=== PATIENT | male | born 1965 | race Caucasian/White ===

== ENCOUNTER 2016-04-28 05:45 | Inpatient (IN) | payer OTHER ==
[2016-04-25 11:50] VITALS: BMI 29.2
[2016-04-28] MEDS ORDERED: TRANEXAMIC ACID 1000 MG/10 ML VIAL IVPUSH ONE (05:50)
[2016-04-28] MEDS ORDERED: CEFAZOLIN 2 GM/D5W 50 ML IVPB ONE (05:50)
[2016-04-28] MEDS ORDERED: GABAPENTIN 300 MG CAPSULE (FP) PO ONE (05:50)
[2016-04-28] MEDS ORDERED: ROPIVICAINE 0.2%/MORPH PF/KETOROLAC - 51ML DISP.SYRINGE IA ONE ×2 (05:50→09:18)
[2016-04-28] MEDS ORDERED: oxyCODONE HCL 10 MG SUSTAINED ACTING TABLET PO ONE (05:50)
[2016-04-28] MEDS ORDERED: CELECOXIB 200 MG CAPSULE PO ONE (05:50)
[2016-04-28] MEDS ORDERED: ROPIVACAINE HCL 0.5% 30ML VIAL ONE (06:47)
[2016-04-28] MEDS ORDERED: SODIUM CHLORIDE 0.9% P/F 10 ML VIAL IJ ONE (06:47)
[2016-04-28] MEDS ORDERED: MIDAZOLAM HCL 2 MG/2 ML SINGLE DOSE VIAL ONE (06:47)
[2016-04-28] MEDS ORDERED: DEXAMETHASONE SOD PHOSPHATE/PF 10 MG/ML SDV ONE (06:47)
[2016-04-28] MEDS ORDERED: ceFAZolin SODIUM 1 GM VIAL ONE ×3 (07:13→08:24)
[2016-04-28] MEDS ORDERED: VANCOMYCIN 1,000 MG VIAL (RESTRICTED TO ID ONLY) ONE ×2 (07:13→08:11)
--- NOTE | 2016-04-28 07:34 | HP ---
Admitting History and Physical - Admission Chief Complaint: left knee osteoarthritis x years History of Present Illness: 50 year old male presents today in regard to his left knee. Longstanding history of left knee osteoarthritis. Patient has failed conservative treatment including PO medication, injections and activity modification. At this point patient would like to proceed with a left total knee arthroplasty. History Source: Patient - Past Medical History Cardiovascular: Yes: HTN, Hyperlipdemia Musculoskeletal: Yes: Osteoarthritis - Past Surgical History Additional Past Surgical History: See written H&P - Smoking History Smoking history: Never smoked Have you smoked in the past 12 months: No - Alcohol/Substance Use Hx Alcohol Use: No Home Medications - Allergies Allergies/Adverse Reactions: Allergies Allergy/AdvReac Type Severity Reaction Status Date / Time No Known Drug Allergies Allergy Verified 04/25/16 11:37 - Home Medications Home Medications: Ambulatory Orders Gabapentin 400 mg PO HS 04/25/16 Ibuprofen 600 mg PO DAILY 04/25/16 Lisinopril/Hydrochlorothiazide [Lisinopril-Hctz 20-12.5 mg Tab] 1 each PO DAILY 04/25/16 Simvastatin 10 mg PO HS 04/25/16 Physical Examination Vital Signs: Vital Signs Temperature 98.6 F 04/28/16 06:27 Pulse Rate 58 L 04/28/16 06:27 Respiratory Rate 18 04/28/16 06:27 Blood Pressure 124/78 04/28/16 06:27 O2 Sat by Pulse Oximetry (%) Constitutional: Yes: Well Nourished, No Distress Eyes: Yes: Conjunctiva Clear HENT: Yes: Atraumatic, Normocephalic Neck: Yes: Supple Cardiovascular: Yes: Regular Rate and Rhythm Respiratory: Yes: Regular Gastrointestinal: Yes: Soft ...Rectal Exam: Yes: Deferred Musculoskeletal: Yes: Other (LROM left knee) Assessment/Plan 50 year old male with longstanding left knee osteoarthritis. Patient has failed conservative treatment, proceed with a left total knee arthroplasty.
[2016-04-28] MEDS ORDERED: LACTATED RINGERS SOLUTION 1,000 ML IV SCH (08:00)
[2016-04-28] MEDS ORDERED: KETOROLAC TROMETHAMINE 30 MG/1 ML VIAL IVPUSH SCH (08:00)
[2016-04-28] MEDS ORDERED: TRANEXAMIC ACID 1000 MG/10 ML VIAL ONE ×3 (08:24→09:41)
[2016-04-28] MEDS ORDERED: PROPOFOL 20 ML ONE ×2 (08:32)
[2016-04-28] MEDS ORDERED: GUM MASTIC/STORAX/MSAL/ALCOHOL 1 DRP DROPSBTL MC ONE (09:51)
[2016-04-28] MEDS ORDERED: PATIENT'S OWN MEDICATION (NON-FORMULARY) (Lisinopril/Hydrochlorothiazide [Lisinopril-Hctz PO SCH (10:00)
--- NOTE | 2016-04-28 10:34 | OP ---
Operative Note - Note: Operative Date: 04/28/16 Pre-Operative Diagnosis: left knee OA Operation: left TKA Post-Operative Diagnosis: Same as Pre-op Surgeon: Ganga Matthews Chef Manager: Ly Rios Anesthesia: Spinal Estimated Blood Loss (mls): 50
[2016-04-28] MEDS ORDERED: MAG HYDROX/AL HYDROX/SIMETH 30 ML UNIT-DOSE CUP PO PRN (11:03)
[2016-04-28] MEDS ORDERED: ROPIVACAINE 0.2% 400ML 400 ML ML NR ONE (11:08)
[2016-04-28] MEDS ORDERED: ACETAMINOPHEN 1000 MG/100 ML VIAL (NON FORMULARY) IVPB ONE (11:08)
[2016-04-28] MEDS ORDERED: MAGNESIUM HYDROX 2400MG/30ML ORAL SUSPENSION 30 ML CUP PO PRN (11:19)
[2016-04-28] MEDS ORDERED: ONDANSETRON 4 MG/2 ML VIAL IVPB PRN (11:19)
[2016-04-28 11:34] LABS: HIV 1 & 2 AB NEGATIVE; HIV 1 AGp24 NEGATIVE
[2016-04-28] MEDS ORDERED: traMADol HCL 50 MG TABLET PO ONE (11:55)
[2016-04-28] MEDS: oxyCODONE HCL 5 MG TABLET PO PRN ×2 (15:08→21:45)
[2016-04-28] MEDS: CEFAZOLIN 2 GM/D5W 50 ML IVPB SCH (15:09)
[2016-04-28] MEDS: traMADol HCL 50 MG TABLET PO SCH ×2 (17:45→23:46)
[2016-04-28] MEDS: ACETAMINOPHEN 325 MG TABLET (FP) PO SCH ×2 (17:45→23:47)
[2016-04-28] MEDS: KETOROLAC TROMETHAMINE 30 MG/1 ML VIAL IVPUSH SCH ×2 (17:46→23:46)
[2016-04-28] MEDS: oxyCODONE HCL 10 MG SUSTAINED ACTING TABLET PO SCH (18:34)
[2016-04-28] MEDS: ATORVASTATIN CA 10 MG TABLET (FP) PO SCH (21:45)
[2016-04-28] MEDS: GABAPENTIN 300 MG CAPSULE (FP) PO SCH (21:45)
[2016-04-28] MEDS: CELECOXIB 200 MG CAPSULE PO SCH (21:45)
[2016-04-28] MEDS: SENNOSIDES/DOCUSATE COMBO (SENNA PLUS) TABLET (UD) PO SCH (21:46)
[2016-04-28] MEDS ORDERED: PATIENT'S OWN MEDICATION (NON-FORMULARY) (Simvastatin [Simvastatin] 10 MG) PO SCH (22:00)
[2016-04-29] MEDS: CEFAZOLIN 2 GM/D5W 50 ML IVPB SCH
[2016-04-29] MEDS: traMADol HCL 50 MG TABLET PO SCH ×4 (06:05→17:16)
[2016-04-29] MEDS: oxyCODONE HCL 10 MG SUSTAINED ACTING TABLET PO SCH ×2 (06:05→18:58)
[2016-04-29] MEDS: ACETAMINOPHEN 325 MG TABLET (FP) PO SCH ×3 (06:05→17:15)
[2016-04-29] MEDS: KETOROLAC TROMETHAMINE 30 MG/1 ML VIAL IVPUSH SCH (06:06)
[2016-04-29 08:24] LABS: MCH 27.8 pg (25.7-33.7); MCHC 32.8 g/dl (32.0-35.9); MEAN CELL VOLUME 84.9 fl (80-96); MEAN PLT VOLUME 7.4 fl (7.5-11.1); PLATELET COUNT 227 K/MM3 (134-434); RDW 11.9 % (11.9-15.9); WHITE BLOOD COUNT 10.5 K/mm3 (4.0-10.0)
[2016-04-29] MEDS: oxyCODONE HCL 5 MG TABLET PO PRN ×3 (08:50→21:32)
[2016-04-29 09:31] LABS: CALCIUM 8.9 mg/dl (8.4-10.2)
[2016-04-29] MEDS: HYDROCHLOROTHIAZIDE 12.5 MG CAPSULE (FP) PO SCH (09:33)
[2016-04-29] MEDS: ASPIRIN 325 MG TABLET PO SCH (09:33)
[2016-04-29] MEDS: SENNOSIDES/DOCUSATE COMBO (SENNA PLUS) TABLET (UD) PO SCH ×2 (09:33→21:24)
[2016-04-29] MEDS: CELECOXIB 200 MG CAPSULE PO SCH ×2 (09:33→21:23)
[2016-04-29] MEDS: GABAPENTIN 300 MG CAPSULE (FP) PO SCH ×2 (09:34→21:22)
[2016-04-29] MEDS: MULTIVITAMINS (DAILY MVI) TABLET (FP) PO SCH (09:35)
[2016-04-29] MEDS: PANTOPRAZOLE 40 MG TABLET (FP) PO SCH (09:35)
[2016-04-29] MEDS: LISINOPRIL 20 MG TABLET (FP) PO SCH (09:35)
--- NOTE | 2016-04-29 11:06 | PN ---
Progress Note (short form) - Note Progress Note: Pt seen and examined. Comfortable. No complaints. AVSS Selected Entries 04/29/16 05:00 Temperature 97.6 F Pulse Rate 62 Respiratory 18 Rate Blood Pressure 98/52 O2 Sat by Pulse 100 Oximetry (%) Oxygen Delivery Room Air Method Laboratory Tests 04/29/16 04/29/16 07:00 07:00 WBC 10.5 H Hgb 13.3 Hct 40.6 Plt Count 227 Sodium 135 L Potassium 4.1 Chloride 104 Carbon Dioxide 25 Anion Gap 6 L BUN 19 H Creatinine 1.0 Random Glucose 118 H Gen: NAD LLE: c/d/i, NVID, 08/08 GS/TA/EHL/FHL Sens intact to LT, foot warm A/P 50yo male POD#1 s/p L TKA 1. PT/OOB 2. Plan for d/c home Thursday
--- NOTE | 2016-04-29 15:02 | SPEC ---
DATE OF OPERATION: 04/28/2016 PREOPERATIVE DIAGNOSIS: Left knee osteoarthritis. POSTOPERATIVE DIAGNOSIS: Left knee osteoarthritis. PROCEDURE PERFORMED: Left total knee replacement. SURGEON: Hiren Ashley MD WATER CARTER: TELLY Cordova ANESTHESIA: Spinal plus sedation. ESTIMATED BLOOD LOSS: 50 mL. COMPLICATIONS: None. SPECIMENS: Resected bone was sent for Pathology analysis. DISPOSITION: The patient was transferred to the PACU in stable condition. IMPLANTS USED: [place] Triathlon size 5 femoral and tibial components, 32-mm patellar components, 11-mm posterior-stabilized polyethylene component. INDICATIONS: This is a 50-year-old male who presented to the office complaining of left knee pain. He was seen and examined by Dr. Ashley and diagnosed with left knee osteoarthritis. He had failed a long trial of nonoperative management, with injection of medications and physical therapy, and was indicated for left total knee replacement. The risks, benefits and alternatives of the procedure were explained to the patient in great detail and he elected to proceed with the surgery. DESCRIPTION OF PROCEDURE: On the day of surgery, the patient was taken to the operating room and placed on the OR table. Spinal anesthesia was administered by the anesthesiologist. The patient was then positioned supine on the table and all bony prominences were padded. A nonsterile tourniquet was placed on the proximal thigh. The knee was then prepped and draped in the usual sterile fashion, and intravenous antibiotics were given for infection prophylaxis. A surgical time-out was then performed with the team, and the patients identity, procedure, side, availability of implants and the administration of antibiotics was confirmed. The leg was then elevated and exsanguinated, and the tourniquet was inflated. With the knee flexed, a midline incision was made and carried down through the subcutaneous fat to the underlying retinaculum. A medial parapatellar arthrotomy was performed. This was followed by a subperiosteal dissection of the tissue off the proximal medial tibia. A portion of fat pad was removed from under the patellar tendon, and a small portion of fat was excised off the distal supracondylar femur. The knee was then flexed further and the anterior horn of the lateral meniscus was released from the midline. Next, the anterior and posterior cruciate ligaments were transected. Osteophytes were removed from both the femur and tibia. Grade 4 changes were noted diffusely throughout the knee. Hohmann retractors were then placed around the distal femur. The starting drill was used to enter the intramedullary canal. The starting point had been chosen by checking the radiographs and anatomy. Proper alignment and intramedullary placement were then confirmed by placing the long narrow emily into the femur. Next, the distal femoral cutting guide was adjusted to 6 degrees of valgus and pinned to the femur. The bone resection was assessed using an ashvin wing. An approximately 10 mm distal cut was made and the cut pieces measured. Once this was complete, the sizing guide was used to determine which size femoral component should be used. Next, the appropriately sized 4-in-1 cutting block was then placed at the correct amount of external rotation and the ashvin wing was used to assure that there would be no notching of the anterior cortex of the femur. Once this was done, Hohmann retractors were used to protect the medial and lateral collateral ligaments, and all appropriate bone cuts were made. Attention was then turned to the tibia. Hohmann retractors were used to translate the tibia anteriorly and protect the collateral ligaments. The medial and lateral menisci were removed. The extramedullary tibial alignment guide was then placed and adjusted for rotation, varus, valgus and slope. The height of the cutting block was adjusted to the level of the desired bone resection and then pinned in place. The proximal tibia was then cut with a saw and the bone was removed and measured. Once this was completed, trial components were placed and the knee was taken through a full range of motion. Soft tissue balance was assessed in both flexion and extension and found to be appropriate. The knee was stable throughout the full range of motion. The knee was then put into extension and the patella everted. The synovium around the patella was circumscribed with electrocautery. A caliper was used to measure the patellar thickness, and a saw was then used to resect the patella at the chondro-osseous junction. The cut surface was then sized and drilled for the appropriate patellar button, with care taken to medialize it. A trial patella was then placed and the knee was again taken through a full range of motion. The knee was found to have both good balance and good patellar tracking. All of the components were removed except the tibial base plate. The appropriate instrumentation was used to drill and punch the proximal tibia for the keel of the final component. All bony surfaces were then cleaned with pulsatile lavage and dried. Bone cement was then prepared on the back table, and final components were cemented in place in the usual fashion. Extruded cement was removed. The polyethylene trial was placed. The knee was put into extension, and axial pressure was applied for compression while the cement hardened. The patellar button was similarly cemented into place. Once the cement had hardened, the knee was taken through a full range of motion to assess stability, balance, and patellar tracking. This was found to be optimal, and the trial polyethylene was exchanged for the appropriately sized real implant. The wound was then thoroughly irrigated with normal saline. No. 1 Polysorb and 0 V-Loc 180 barbed sutures were used to close the arthrotomy. No. 1 Polysorb and 2-0 Polysorb sutures were used in the subcutaneous tissues. The skin was closed using both 3-0 V-Loc 90 suture in a running subcuticular fashion and SwiftSet skin adhesive. Once this was completed, a sterile Aquacel dressing and compressive Arsh-wrap were applied. The tourniquet was then deflated and the patient was awakened and taken to the PACU in stable condition. ADDENDUM: After all implants were placed, a 3-minutes dilute Betadine lavage was performed according to the DUPUYER protocol for this. The wound was again irritated with pulse lavage and wound closure was begun. HIREN ASHLEY M.D. [id number]
--- NOTE | 2016-04-29 15:45 | PN ---
Progress Note (short form) - Note Progress Note: POD #1 s/p Left TKR, Doing well, comfortable VSS, moving etremities, Adductor Canal catheter dressing C/D/I Continue adductor canal catheter and adjunct meds
[2016-04-29] MEDS: ATORVASTATIN CA 10 MG TABLET (FP) PO SCH (21:23)
[2016-04-30] MEDS: ACETAMINOPHEN 325 MG TABLET (FP) PO SCH ×2 (00:05→06:08)
[2016-04-30] MEDS: traMADol HCL 50 MG TABLET PO SCH ×2 (00:06→06:09)
[2016-04-30 06:03] VITALS: BP 95/67; PULSE 78; TEMP 98.5
[2016-04-30] MEDS: oxyCODONE HCL 10 MG SUSTAINED ACTING TABLET PO SCH (06:09)
[2016-04-30 08:40] LABS: MCH 27.7 pg (25.7-33.7); MCHC 32.5 g/dl (32.0-35.9); MEAN PLT VOLUME 7.4 fl (7.5-11.1); PLATELET COUNT 211 K/MM3 (134-434); RDW 12.4 % (11.9-15.9); WHITE BLOOD COUNT 9.4 K/mm3 (4.0-10.0)
[2016-04-30 08:44] LABS: CALCIUM 8.9 mg/dl (8.4-10.2)
--- NOTE | 2016-04-30 09:27 | PN ---
Progress Note (short form) - Note Progress Note: 50M POD2 s/p L TKR under spinal anesthetic with cont. adductor canal catheter and tibial block for pain control. Pain is controlled, AVSS, pt reports no anesthetic complications. Catheter removed, tip intact, site clean. Sensory and motor function intact in both lower extremities.
[2016-04-30] MEDS: SENNOSIDES/DOCUSATE COMBO (SENNA PLUS) TABLET (UD) PO SCH ×2 (09:34→09:37)
[2016-04-30] MEDS: ASPIRIN 325 MG TABLET PO SCH (09:34)
[2016-04-30] MEDS: oxyCODONE HCL 5 MG TABLET PO PRN (09:35)
[2016-04-30] MEDS: CELECOXIB 200 MG CAPSULE PO SCH (09:36)
[2016-04-30] MEDS: HYDROCHLOROTHIAZIDE 12.5 MG CAPSULE (FP) PO SCH ×2 (09:36→09:37)
[2016-04-30] MEDS: MULTIVITAMINS (DAILY MVI) TABLET (FP) PO SCH (10:48)
[2016-04-30] MEDS: PANTOPRAZOLE 40 MG TABLET (FP) PO SCH (10:48)
[2016-04-30] MEDS: LISINOPRIL 20 MG TABLET (FP) PO SCH (10:48)
[2016-04-30] MEDS: GABAPENTIN 300 MG CAPSULE (FP) PO SCH (10:48)
--- NOTE | 2016-04-30 10:48 | PN ---
Progress Note (short form) - Note Progress Note: Pt seen and examined. Comfortable. No complaints. AVSS Selected Entries 04/30/16 06:02 Temperature 98.5 F Pulse Rate 78 Respiratory 19 Rate Blood Pressure 95/67 O2 Sat by Pulse 95 Oximetry (%) Laboratory Tests 04/30/16 04/30/16 07:00 07:00 WBC 9.4 Hgb 13.5 Hct 41.4 Plt Count 211 Sodium 136 Potassium 4.8 Chloride 99 Carbon Dioxide 31 H D Anion Gap 6 L BUN 12 D Creatinine 1.0 Random Glucose 94 D Gen: NAD LLE: c/d/i, NVID, 08/08 GS/TA/EHL/FHL Sens intact to LT, foot warm A/P 50yo male POD#2 s/p L TKA 1. PT/OOB 2. d/c home today
--- NOTE | 2016-04-30 13:19 | PATH ---
Surgical Pathology Report Patient Name: MINNIE GORE Med. Rec. #: [id number] /Age/Gender: 1965 (Age: 50) / M Account: [id number] Location: [facility] MED-SURG Taken: 04/28/2016 Received: 04/28/2016 Reported: 04/30/2016 Physicians: Ganga Matthews M.D. Specimen(s) Received BONE LEFT KNEE Clinical History Osteoarthritis of left knee Final Diagnosis BONE, LEFT KNEE, TOTAL KNEE REPLACEMENT: CONSISTENT WITH DEGENERATIVE JOINT DISEASE. Electronically Signed Jm See M.D. Gross Description Received in formalin, labeled "bone left knee" is a 13.0 x 9.5 x 2.0 cm aggregate of multiple brock, irregular portions of bone and soft tissue. The tibial plateau measures 8.5 x 6.0 x 1.8 cm. There is a 2 cm in greatest dimension area of eburnation present. The remaining articular surfaces are brock-yellow and focally granular. The underlying trabecular bone is yellow and heterogebeous. Assembler Insulator sections are submitted in one cassette following decalcification. 04/29/201604/29/2016
== END 2016-04-30 12:01 | disposition home health service (06) | DRG 302 ==
LOC: FM/S 05:45
PROVIDERS: ADMIT Student in an Organized Health Care Education/Training Program; ATTEND Student in an Organized Health Care Education/Training Program
PROC: 0SRD0J9 Replacement of Left Knee Joint with Synthetic Substitute, Cemented, Open Approach (ICD-10-PCS; principal; 2016-04-28 08:42)
DX: M17.12 Unilateral primary osteoarthritis, left knee (principal); I10 Essential (primary) hypertension; E78.5 Hyperlipidemia, unspecified
CPT/HCPCS: 36415; 73560-TC-LT; 80048; 85027; 86803; 87389; 88304-TC; 88311-TC; 94010; 94760; 97116-GP; 97162-PG

== ENCOUNTER 2017-10-19 12:00 | Inpatient (IN) | payer OTHER ==
[2017-10-12 14:56] VITALS: BMI 31.3
[2017-10-26] MEDS ORDERED: oxyCODONE HCL 10 MG SUSTAINED ACTING TABLET PO ONE (06:27)
--- NOTE | 2017-10-26 07:17 | HP ---
Admitting History and Physical - Admission Chief Complaint: Right knee osteoarthritis x years History of Present Illness: 52 year old male presents regarding his right knee. Longstanding history of right knee osteoarthritis. Patient complains of pain, limited ROM, difficulty ambulating and difficulty with ADLs. Patient has failed conservative treatment measures including PO medication, activity modification, injections and exercise program. At this point, patient wishes to proceed with surgical intervention - right total knee arthroplasty (MAKOplasty). History Source: Patient - Past Medical History Cardiovascular: Yes: HTN, Hyperlipdemia Musculoskeletal: Yes: Osteoarthritis - Past Surgical History Additional Past Surgical History: See written history & physical. - Smoking History Smoking history: Never smoked Have you smoked in the past 12 months: No - Alcohol/Substance Use Hx Alcohol Use: No Home Medications - Allergies Allergies/Adverse Reactions: Allergies Allergy/AdvReac Type Severity Reaction Status Date / Time No Known Drug Allergies Allergy Verified 10/12/17 14:36 - Home Medications Home Medications: Ambulatory Orders Lisinopril/Hydrochlorothiazide [Lisinopril-Hctz 20-12.5 mg Tab] 1 each PO DAILY 04/25/16 Simvastatin 10 mg PO HS 04/25/16 Sennosides/Docusate Sodium [Pericolace -] 2 tablet PO BID tablet 04/30/16 Review of Systems - Review of Systems Musculoskeletal: reports: Crepitus (right knee), Decreased ROM (right knee), Joint Pain (right knee), Joint Swelling (right knee) Physical Examination Vital Signs: Vital Signs Temperature 98.1 F 10/26/17 06:44 Pulse Rate 61 10/26/17 06:44 Respiratory Rate 16 10/26/17 06:44 Blood Pressure 113/74 10/26/17 06:44 O2 Sat by Pulse Oximetry (%) Constitutional: Yes: Well Nourished, No Distress Eyes: Yes: Conjunctiva Clear HENT: Yes: Atraumatic, Normocephalic Neck: Yes: Supple Cardiovascular: Yes: Regular Rate and Rhythm Respiratory: Yes: Regular Gastrointestinal: Yes: Soft ...Rectal Exam: Yes: Deferred Musculoskeletal: Yes: Joint Swelling (right knee) Assessment/Plan 52 year old male presents regarding his right knee. Longstanding history of right knee osteoarthritis. Patient complains of pain, limited ROM, difficulty ambulating and difficulty with ADLs. Patient has failed conservative treatment measures including PO medication, activity modification, injections and exercise program. At this point, patient wishes to proceed with surgical intervention - right total knee arthroplasty (MAKOplasty). Pros, cons, risks, benefits and alternatives of a right total knee arthroplasty - MAKOplasty was discussed with the patient at length. Patient confirms his understanding and consents to proceed with a right total knee arthroplasty, MAKOplasty.
[2017-10-26] MEDS ORDERED: MIDAZOLAM HCL 2 MG/2 ML SINGLE DOSE VIAL ONE ×2 (07:19→08:22)
[2017-10-26] MEDS ORDERED: SODIUM CHLORIDE 0.9% P/F 10 ML VIAL IJ ONE (07:20)
[2017-10-26] MEDS ORDERED: BUPIVACAINE LIPOSOME/PF (EXPAREL) 266 MG/20 ML VIAL ONE (07:20)
[2017-10-26] MEDS ORDERED: BUPIVACAINE HCL/PF (5 MG/ML) 30 ML VIAL IJ ONE (07:20)
[2017-10-26] MEDS ORDERED: ROPIVICAINE 0.2%/MORPH PF/KETOROLAC - 51ML DISP.SYRINGE IA ONE ×4 (07:42→10:40)
[2017-10-26] MEDS ORDERED: GABAPENTIN 300 MG CAPSULE (FP) PO ONE (08:00)
[2017-10-26] MEDS ORDERED: PANTOPRAZOLE 40 MG TABLET (FP) PO ONE (08:00)
[2017-10-26] MEDS ORDERED: TRANEXAMIC ACID 1000 MG/10 ML VIAL IVPUSH ONE (08:00)
[2017-10-26] MEDS ORDERED: CEFAZOLIN 2 GM in DEXTROSE 5%-WATER - 50 ML IVPB ONE (08:00)
[2017-10-26] MEDS ORDERED: CELECOXIB 200 MG CAPSULE PO ONE (08:00)
[2017-10-26] MEDS ORDERED: BUPIVACAINE 0.75% IN DEXTROSE/PF 2ML AMPULE NR ONE (08:02)
[2017-10-26] MEDS ORDERED: TRANEXAMIC ACID 1000 MG/10 ML VIAL ONE ×2 (08:23→10:23)
[2017-10-26] MEDS ORDERED: ceFAZolin SODIUM 1 GM VIAL ONE (08:23)
[2017-10-26] MEDS ORDERED: PROPOFOL 20 ML ONE ×3 (08:34→09:59)
[2017-10-26] MEDS ORDERED: ePHEDrine SULFATE 50 MG/1 ML AMPULE ONE (10:22)
[2017-10-26] MEDS ORDERED: KETOROLAC TROMETHAMINE 30 MG/1 ML VIAL ONE (10:23)
[2017-10-26] MEDS ORDERED: DEXAMETHASONE SOD PHOSPHATE 4 MG/1 ML VIAL ONE (10:23)
[2017-10-26] MEDS ORDERED: ONDANSETRON 4 MG/2 ML VIAL ONE (10:23)
[2017-10-26] MEDS ORDERED: VANCOMYCIN 1,000 MG VIAL (RESTRICTED TO ID ONLY) IVPB ONE ×2 (10:30→10:40)
[2017-10-26] MEDS ORDERED: TRANEXAMIC ACID 1000 MG/10 ML VIAL IVPB ONE ×2 (10:30→10:40)
[2017-10-26] MEDS ORDERED: ONDANSETRON 4 MG/2 ML VIAL IVPUSH PRN ×2 (11:35→11:51)
[2017-10-26] MEDS ORDERED: traMADol HCL 50 MG TABLET PO SCH (11:45)
[2017-10-26] MEDS ORDERED: LACTATED RINGERS SOLUTION 1,000 ML IV SCH ×2 (11:45→12:00)
[2017-10-26] MEDS ORDERED: MAG HYDROX/AL HYDROX/SIMETH 30 ML UNIT-DOSE CUP PO PRN (11:51)
[2017-10-26] MEDS ORDERED: MAGNESIUM HYDROX 2400MG/30ML ORAL SUSPENSION 30 ML CUP PO PRN (11:51)
[2017-10-26] MEDS: ACETAMINOPHEN 1000 MG/100 ML VIAL (NON FORMULARY) IVPB ONE ×2 (12:00→13:58)
--- NOTE | 2017-10-26 12:09 | OP ---
Operative Note - Note: Operative Date: 10/26/17 Pre-Operative Diagnosis: right knee OA Operation: right TKA ALPHONSO Post-Operative Diagnosis: Same as Pre-op Surgeon: Ganga Matthews Supervisor Pre Wave: Ly Rios Anesthesia: Spinal Estimated Blood Loss (mls): 100
[2017-10-26] MEDS ORDERED: KETOROLAC TROMETHAMINE 30 MG/1 ML VIAL IVPUSH SCH (15:00)
[2017-10-26] MEDS: KETOROLAC TROMETHAMINE 30 MG/1 ML VIAL IVPUSH SCH (17:30)
[2017-10-26] MEDS: ACETAMINOPHEN 325 MG TABLET (FP) PO SCH (17:31)
[2017-10-26] MEDS: traMADol HCL 50 MG TABLET PO SCH (17:31)
[2017-10-26] MEDS: CEFAZOLIN 2 GM/D5W 2 GM/50 ML ML IVPB SCH (17:48)
--- NOTE | 2017-10-26 19:28 | SPEC ---
DATE OF OPERATION: 10/26/2017 PREOPERATIVE DIAGNOSIS: Right knee osteoarthritis. POSTOPERATIVE DIAGNOSIS: Right knee osteoarthritis. PROCEDURE: Right total knee replacement with MAKOplasty robotic navigation. ATTENDING: Hiren Ashley MD CLOTH FINISHING RANGE OPERATOR CHIEF: TELLY Cordova ANESTHESIA: Spinal plus sedation. ESTIMATED BLOOD LOSS: 100 mL COMPLICATIONS: None. DISPOSITION: The patient was transferred to the PACU in stable condition. IMPLANTS USED: [place] Triathlon size 5 femoral component, size 6 tibial component, 29-mm patellar component, 11-mm posterior-stabilized polyethylene component. INDICATIONS: This is a 52-year-old male who presented to the office complaining of bilateral knee pain. He was seen and examined by Dr. Ashley and diagnosed with severe bilateral knee osteoarthritis. The patient underwent a left total knee replacement in April 2016, and did very well after the surgery. He continued to have severe right knee pain and ambulatory dysfunction and desired to have the same surgery performed on the right side. The risks, benefits, and alternatives for the procedure were explained to the patient in great detail, and he elected to proceed with the surgery. On the day of surgery, the patient was taken to the operating room and placed on the OR table. Spinal anesthesia was administered by the anesthesiologist. The patient was then positioned supine on the table and all bony prominences were padded. The knee was then prepped and draped in the usual sterile fashion and intravenous antibiotics were given for infection prophylaxis. A surgical time-out was then performed with the team, and the patients identity, procedure, side, availability of implants, and the administration of antibiotics was confirmed. With the knee flexed, a midline incision was made and carried down through the subcutaneous fat to the underlying retinaculum. A medial parapatellar arthrotomy was performed. This was followed by a subperiosteal dissection of the tissue off the proximal, medial tibia. A portion of fat pad was removed from under the patellar tendon, and a small portion of fat was excised off the distal supracondylar femur. Electrocautery and an Aquamantys bipolar sealing device were used to achieve hemostasis. The knee was then flexed further and the anterior horn of the lateral meniscus was released from the midline. Next, the anterior and posterior cruciate ligaments were transected. Grade 4 changes were noted diffusely throughout the knee. Femoral and tibial checkpoints were then placed in the appropriate location using a mallet. Two parallel bicortical self-drilling pins were placed in the tibial diaphysis after making stab incisions and bluntly dissecting down to bone. Two pins were then placed in the distal supracondylar femur. The Platogo navigation arrays were then attached to both the femoral and tibial pins and the lower extremity was then registered to the robotic navigation device using various joint movements, as well as inputting several dozen reference points. The knee was then taken through a full range of motion with a corrective force applied. Alignment in varus/valgus as well as flexion/extension and soft tissue balance was measured in various positions. The navigation device showed a numerical and graphic representation of the soft tissue balance. The components were repositioned virtually using the software until optimal soft tissue balance was achieved on screen. Once this was accomplished, the final plan was saved and sent to the robot. Self-retaining retractors were then placed at the joint line for exposure and protection of the collateral ligaments. The robot was brought into the sterile field and registered with the navigation device. The robotic arm with attached oscillating saw blade was then used to perform femoral and tibial bone cuts as per the saved software plan. The femoral box cut was made using the appropriately sized manual cutting guide. The knee was then irrigated. Trial components were placed and the knee was taken through a full range of motion to assess soft tissue balance and alignment. The range of motion was found to be excellent and the soft tissue balance was optimal and according to plan. The knee was then put into extension and the patella everted. The synovium around the patella was circumscribed with electrocautery. A caliper was used to measure the patellar thickness and a saw was then used to resect the patella at the chondro-osseous junction. The cut surface was then sized and drilled for the appropriate patellar button, with care taken to medialize it. A trial patella was then placed and the knee was again taken through a full range of motion. The knee was found to have both good balance and good patellar tracking. All of the components were removed except the tibial base plate. The appropriate instrumentation was used to drill and punch the proximal tibia for the keel of the final component. All bony surfaces were then cleaned with pulsatile lavage and dried. Bone cement was then prepared on the back table, and final components were cemented in place in the usual fashion. Extruded cement was removed. The polyethylene trial was placed, the knee was put into extension, and axial pressure was applied for compression while the cement hardened. The patellar button was similarly cemented into place. Once the cement had hardened, the knee was taken through a full range of motion to assess stability, balance, and patellar tracking. This was found to be optimal and the trial polyethylene was exchanged for the appropriately sized real implant. The wound was then thoroughly irrigated with normal saline. A 3-minute dilute Betadine lavage was performed. The knee was again irrigated using a pulsatile lavage device. A periarticular injection was used to locally infiltrate the capsular tissues surrounding the implant and prosthesis. Then No. 1 Polysorb and 0 VLoc 180 barbed sutures were used to close the arthrotomy. Then No. 1 Polysorb and 2-0 VLoc 90 sutures were used in the subcutaneous tissues. Then 4-0 undyed Vicryl and Dermabond skin adhesive was used to close the stab incisions made for the navigation pins. The skin was closed using both 3-0 VLoc 90 suture in a running subcuticular fashion and Dermabond skin adhesive. Once this was completed a sterile Aquacel dressing and compressive Arsh-wrap was applied. The patient was then awakened and taken to the PACU in stable condition. HIREN ASHLEY M.D. [id number]
[2017-10-26] MEDS ORDERED: DEXAMETHASONE SOD PHOSPHATE 10 MG/1 ML VIAL IVPB ONE (20:00)
[2017-10-26] MEDS: ATORVASTATIN CA 10 MG TABLET (FP) PO SCH (21:18)
[2017-10-26] MEDS: oxyCODONE HCL 5 MG TABLET PO PRN (21:18)
[2017-10-26] MEDS: CELECOXIB 200 MG CAPSULE PO SCH (21:18)
[2017-10-26] MEDS: SENNOSIDES/DOCUSATE COMBO (SENNA PLUS) TABLET (UD) PO SCH (21:18)
[2017-10-26] MEDS: oxyCODONE HCL 10 MG SUSTAINED ACTING TABLET PO SCH (21:18)
[2017-10-26] MEDS: GABAPENTIN 300 MG CAPSULE (FP) PO SCH (21:19)
[2017-10-26] MEDS: ASCORBIC ACID 500 MG TABLET (FP) PO SCH (21:19)
[2017-10-26] MEDS ORDERED: PATIENT'S OWN MEDICATION (NON-FORMULARY) (Simvastatin [Simvastatin] 10 MG) PO SCH (22:00)
[2017-10-26] MEDS ORDERED: SENNOSIDES/DOCUSATE COMBO (SENNA PLUS) TABLET (UD) PO SCH (22:00)
[2017-10-27] MEDS: ACETAMINOPHEN 325 MG TABLET (FP) PO SCH ×4 (00:31→17:49)
[2017-10-27] MEDS: traMADol HCL 50 MG TABLET PO SCH ×4 (00:31→17:50)
[2017-10-27] MEDS: KETOROLAC TROMETHAMINE 30 MG/1 ML VIAL IVPUSH SCH ×2 (00:32→06:09)
[2017-10-27] MEDS: CEFAZOLIN 2 GM/D5W 2 GM/50 ML ML IVPB SCH (02:13)
[2017-10-27 08:26] LABS: ANION GAP 4 (8-16); BLOOD UREA NITROGEN 16 mg/dl (7-18); CALCIUM 8.7 mg/dl (8.4-10.2); CHLORIDE 101 mmol/L (98-107); CO2 26 mmol/L (22-28); CREATININE 1.1 mg/dl (0.6-1.3); GLUCOSE,RANDOM 182 mg/dl (74-106); POTASSIUM 4.2 mmol/L (3.5-5.1); SODIUM 131 mmol/L (136-145)
[2017-10-27] MEDS: ASPIRIN 325 MG TABLET PO SCH (08:30)
[2017-10-27 08:31] LABS: HEMATOCRIT 41.5 % (35.4-49); HEMOGLOBIN 14.4 GM/dl (11.7-16.9); MCH 29.2 pg (25.7-33.7); MCHC 34.5 g/dl (32.0-35.9); MEAN CELL VOLUME 84.5 fl (80-96); MEAN PLT VOLUME 7.2 fl (7.5-11.1); PLATELET COUNT 267 K/MM3 (134-434); RBC 4.92 M/mm3 (4.00-5.60); RDW 12.1 % (11.9-15.9); WHITE BLOOD COUNT 14.8 K/mm3 (4.0-10.8)
[2017-10-27] MEDS: GABAPENTIN 300 MG CAPSULE (FP) PO SCH ×2 (09:32→21:18)
[2017-10-27] MEDS: HYDROCHLOROTHIAZIDE 12.5 MG CAPSULE (FP) PO SCH (09:32)
[2017-10-27] MEDS: PANTOPRAZOLE 40 MG TABLET (FP) PO SCH (09:32)
[2017-10-27] MEDS: MULTIVITAMINS (DAILY MVI) TABLET (FP) PO SCH (09:33)
[2017-10-27] MEDS: LISINOPRIL 20 MG TABLET (FP) PO SCH (09:33)
[2017-10-27] MEDS: CELECOXIB 200 MG CAPSULE PO SCH ×2 (09:33→21:17)
[2017-10-27] MEDS: ASCORBIC ACID 500 MG TABLET (FP) PO SCH ×2 (09:33→21:17)
[2017-10-27] MEDS: SENNOSIDES/DOCUSATE COMBO (SENNA PLUS) TABLET (UD) PO SCH ×2 (09:33→21:17)
[2017-10-27] MEDS: oxyCODONE HCL 10 MG SUSTAINED ACTING TABLET PO SCH ×2 (09:34→21:18)
[2017-10-27] MEDS: oxyCODONE HCL 5 MG TABLET PO PRN ×2 (09:35→21:18)
[2017-10-27] MEDS ORDERED: PATIENT'S OWN MEDICATION (NON-FORMULARY) (Lisinopril/Hydrochlorothiazide [Lisinopril-Hctz PO SCH (10:00)
--- NOTE | 2017-10-27 11:14 | PN ---
Progress Note (short form) - Note Progress Note: ANESTHESIA POSTOP: 52 yo male. POD #1 s/p R TKA. Doing well. Participating in PT. Tolerating PO. Encouraged IS No anesthetic complications
[2017-10-27 20:58] VITALS: TEMP 97.8
[2017-10-27] MEDS: ATORVASTATIN CA 10 MG TABLET (FP) PO SCH (21:17)
--- NOTE | 2017-10-27 21:37 | PN ---
Progress Note (short form) - Note Progress Note: Pt seen and examined. Doing well. AVSS Selected Entries 10/27/17 10/27/17 19:48 20:57 Temperature 97.8 F Pulse Rate 62 Respiratory 16 Rate Blood Pressure 116/61 O2 Sat by Pulse 99 Oximetry (%) Oxygen Delivery Room Air Method Laboratory Tests 10/27/17 10/27/17 08:00 08:00 WBC 14.8 H Hgb 14.4 Hct 41.5 Plt Count 267 D Sodium 131 L Potassium 4.2 Chloride 101 Carbon Dioxide 26 Anion Gap 4 L BUN 16 Creatinine 1.1 Creat Clearance w eGFR > 60 Random Glucose 182 H D Calcium 8.7 Gen: NAD RLE: c/d/i, NVID A/P s/p TKA PT/OOB D/C tomorrow
[2017-10-28] MEDS: traMADol HCL 50 MG TABLET PO SCH ×3 (00:05→12:34)
[2017-10-28] MEDS: ACETAMINOPHEN 325 MG TABLET (FP) PO SCH ×3 (00:05→12:48)
[2017-10-28] MEDS: oxyCODONE HCL 5 MG TABLET PO PRN ×2 (05:57→09:35)
[2017-10-28 08:14] LABS: HEMOGLOBIN 13.2 GM/dl (11.7-16.9); MCH 28.9 pg (25.7-33.7); MCHC 33.9 g/dl (32.0-35.9); MEAN CELL VOLUME 85.2 fl (80-96); MEAN PLT VOLUME 7.3 fl (7.5-11.1); PLATELET COUNT 249 K/MM3 (134-434); RBC 4.58 M/mm3 (4.00-5.60); RDW 12.4 % (11.9-15.9); WHITE BLOOD COUNT 14.5 K/mm3 (4.0-10.8)
[2017-10-28] MEDS: ASPIRIN 325 MG TABLET PO SCH (08:30)
--- NOTE | 2017-10-28 08:43 | DS ---
Physical Examination Vital Signs: Vital Signs Temperature 97.8 F 10/27/17 20:57 Pulse Rate 62 10/27/17 20:57 Respiratory Rate 16 10/27/17 20:57 Blood Pressure 116/61 10/27/17 20:57 O2 Sat by Pulse Oximetry (%) 99 10/28/17 08:31 Labs: CBC, BMP 10/28/17 07:30 10/27/17 08:00 Discharge Summary Reason For Visit: RIGHT KNEE OSTEOARTHRITIS Current Active Problems Osteoarthritis of right knee (Acute) Procedures: Principal: right ALPHONSO TKA Hospital Course: Admitted for elective surgery. Procedure performed without complications. Pt received postoperative antibiotic prophylaxis and DVT ppx. Ambulated with physical therapy. Stable for discharge with outpatient followup. Condition: Stable - Instructions Diet, Activity, Other Instructions: Dr. Matthews - Knee Replacement Instructions Keep the Aquacel dressing on until removed by Dr. Matthews in 10-14 days - it is antibacterial and waterproof and you can shower with it on. Call the office for a follow-up appointment with Dr. Matthews in 10-14 days. Take one Aspirin 325mg daily for 6 weeks to prevent blood clots in your legs. Take one Pantoprazole 40mg daily for 6 weeks to protect against heartburn and ulcers. Take Cephalexin (antibiotic) 3x/day for 10 days to help prevent skin infection. Take Celebrex 200mg twice daily for 30 days to reduce swelling and inflammation. Take a multivitamin, stool softener, and extra Vitamin C supplement daily. For pain: *Mild pain (1-3/10): Take 1 Tramadol tablet every 4 hours as needed. Moderate pain (4-6/10): Take 1 Tramadol tablet and 1 Percocet tablet every 4 hours as needed. Severe pain (7-10/10): Take 1 Tramadol tablet and 2 Percocet tablets every 4 hours as needed. Activity: You can put as much weight on the operative leg as you want. Right after you get home, there will be a physical therapist coming to your house to help you walk around and bend/straighten your knee. After your follow-up appointment, you will be sent for more intensive outpatient physical therapy which will include machines and equipment that the home therapist cannot bring to your house. Always use a walker or cane for balance and to prevent falls. Expect to see swelling/bruising from the operative site all the way down to your toes. Wear the compression stocking on the operative side during the day to minimize how much swelling there is in your foot/ankle. Don't wear the stocking at night. You don't have to wear a stocking on the other side. Disposition: HALF-WAY FACILITY - Home Medications Comprehensive Discharge Medication List: Ambulatory Orders Lisinopril/Hydrochlorothiazide [Lisinopril-Hctz 20-12.5 mg Tab] 1 each PO DAILY 04/25/16 Simvastatin 10 mg PO HS 04/25/16 Sennosides/Docusate Sodium [Pericolace -] 2 tablet PO BID tablet 04/30/16 Ascorbic Acid [Vitamin C -] 500 mg PO BID tablet 10/28/17 Aspirin [ASA -] 325 mg PO DAILY@0800 tablet 10/28/17 Celecoxib [CeleBREX -] 200 mg PO BID #60 capsule 10/28/17 Cephalexin Monohydrate [Keflex -] 500 mg PO TID #30 capsule 10/28/17 Multivitamins [Multivit ([facility] Formulary)] 1 tab PO DAILY tab 10/28/17 Oxycodone HCl/Acetaminophen [Percocet 5-325 mg Tablet] 1 - 2 tab PO Q4H PRN #60 tablet MDD 10 10/28/17 Pantoprazole Sodium [Protonix -] 40 mg PO DAILY #40 tablet.ec 10/28/17 traMADol HCL [Ultram -] 50 mg PO Q4H PRN #42 tablet MDD 6 10/28/17
[2017-10-28] MEDS: GABAPENTIN 300 MG CAPSULE (FP) PO SCH (09:33)
[2017-10-28] MEDS: ASCORBIC ACID 500 MG TABLET (FP) PO SCH (09:33)
[2017-10-28] MEDS: HYDROCHLOROTHIAZIDE 12.5 MG CAPSULE (FP) PO SCH (09:34)
[2017-10-28] MEDS: PANTOPRAZOLE 40 MG TABLET (FP) PO SCH (09:34)
[2017-10-28] MEDS: LISINOPRIL 20 MG TABLET (FP) PO SCH (09:34)
[2017-10-28] MEDS: CELECOXIB 200 MG CAPSULE PO SCH (09:34)
[2017-10-28] MEDS: SENNOSIDES/DOCUSATE COMBO (SENNA PLUS) TABLET (UD) PO SCH (09:34)
[2017-10-28] MEDS: MULTIVITAMINS (DAILY MVI) TABLET (FP) PO SCH (09:34)
[2017-10-28] MEDS: oxyCODONE HCL 10 MG SUSTAINED ACTING TABLET PO SCH (09:35)
[2017-10-28 10:24] VITALS: BP 125/54; PULSE 65
--- NOTE | 2017-10-28 12:39 | PATH ---
Surgical Pathology Report Patient Name: MINNIE GORE Med. Rec. #: [id number] /Age/Gender: 1965 (Age: 52) / M Account: [id number] Location: [facility] Taken: 10/26/2017 Received: 10/26/2017 Reported: 10/28/2017 Physicians: Ganga Matthews M.D. Specimen(s) Received BONE FRAGMENTS Clinical History Right knee osteoarthritis Final Diagnosis KNEE BONE, RIGHT, TOTAL KNEE REPLACEMENT: DEGENERATIVE JOINT DISEASE. Electronically Signed Yeimy Velazquez M.D. Gross Description Received in formalin labeled "right knee bone," is a 12.5 x 9.5 x 2.8 cm aggregate of multiple portions of bone and soft tissue. The tibial plateau measures 8.2 x 5.5 x 1.5 cm. There is a 0.8 cm greatest dimension area of eburnation present. The remaining articular surfaces are brock-yellow and diffusely granular. The underlying trabecular bone is yellow and hard. [employer] sections are submitted in one cassette, following decalcification. 10/27/2017 [facility]10/27/2017
== END 2017-10-28 14:10 | DRG 302 ==
LOC: FM/S 10-26 06:11
PROVIDERS: ADMIT Student in an Organized Health Care Education/Training Program; ATTEND Student in an Organized Health Care Education/Training Program
PROC: 8E0Y0CZ Robotic Assisted Procedure of Lower Extremity, Open Approach (ICD-10-PCS; 2017-10-26)
PROC: 0SRC0J9 Replacement of Right Knee Joint with Synthetic Substitute, Cemented, Open Approach (ICD-10-PCS; principal; 2017-10-26 08:53)
DX: M17.11 Unilateral primary osteoarthritis, right knee (principal); I10 Essential (primary) hypertension; E78.5 Hyperlipidemia, unspecified
CPT/HCPCS: 36415; 73560-TC-RT-FY; 80048; 85027; 86803; 87389; 88304-TC; 88311-TC; 94760; 97116-GP; 97162-GP; J0131; J1100